=== PATIENT | male | born 1980 | race Caucasian/White ===

== ENCOUNTER 2018-10-25 20:44 | Emergency (ER) | payer BC ==
[~2018-10-25] VITALS: Ht 175.3 cm; Wt 68.0 kg
[~2018-10-25 20:44] MED LIST: AMOXICILLIN500 M1 PO; GABAPENTIN 100100 MG; NEURONTIN800 MG PO; NORCO 5-325 TA1 EACH PO; OXYCONTIN10 M1; PERCOCET; PREDNISONE50 MG PO; TUMS PO; ZANTAC 150MG T150 MG
[2018-10-25] MEDS ORDERED: KEFLEX500 M1 PO ×2 (21:13→21:26)
[2018-10-25 21:39] VITALS: BP 156/102
== END 2018-10-25 21:40 | disposition home or self-care (01) ==
LOC: M.ERS 20:44
DX: S51.811A Laceration without foreign body of right forearm, initial encounter (principal); Z88.8 Allergy status to other drugs, medicaments and biological substances; Z88.6 Allergy status to analgesic agent; W26.8XXA Contact with other sharp object(s), not elsewhere classified, initial encounter; Y93.89 Activity, other specified; Y92.89 Other specified places as the place of occurrence of the external cause; Y99.8 Other external cause status

== ENCOUNTER 2018-11-01 21:23 | Emergency (ER) | payer BC ==
[~2018-11-01 21:23] MED LIST changes: +KEFLEX500 M1 PO
== END 2018-11-01 22:58 ==
LOC: M.ERS 21:23
DX: Z02.89 Encounter for other administrative examinations (principal)

== ENCOUNTER 2019-07-09 20:49 | Emergency (ER) | payer OTHER ==
[~2019-07-09] VITALS: Ht 167.6 cm; Wt 63.5 kg
[2019-07-09] MEDS ORDERED: KEFLEX500 M1 PO (21:57)
[2019-07-09 22:28] VITALS: BP 142/70
== END 2019-07-09 22:29 | disposition home or self-care (01) ==
LOC: M.ERS 20:49
DX: S56.49 Other injury of extensor muscle, fascia and tendon of other and unspecified finger at forearm level (principal); Z88.6 Allergy status to analgesic agent; Z88.8 Allergy status to other drugs, medicaments and biological substances; W26.0XXA Contact with knife, initial encounter; Y93.89 Activity, other specified; Y92.89 Other specified places as the place of occurrence of the external cause; Y99.8 Other external cause status

== ENCOUNTER 2019-10-23 15:56 | Emergency (ER) | payer OTHER ==
[~2019-10-23] VITALS: Ht 182.9 cm; Wt 63.5 kg
[2019-10-23] MEDS ORDERED: LISINOPRIL2.5 MG PO (16:09)
[2019-10-23] MEDS ORDERED: NORCO 5-325 TA1 EAC1 PO (17:01)
[2019-10-23 17:29] VITALS: BP 142/98
== END 2019-10-23 17:29 | disposition home or self-care (01) ==
LOC: M.ERS 15:56
DX: S52.134A Nondisplaced fracture of neck of right radius, initial encounter for closed fracture (principal); M25.531 Pain in right wrist; I10 Essential (primary) hypertension; Z88.6 Allergy status to analgesic agent; Z88.8 Allergy status to other drugs, medicaments and biological substances; X50.1XXA Overexertion from prolonged static or awkward postures, initial encounter; Y93.89 Activity, other specified; Y92.89 Other specified places as the place of occurrence of the external cause; Y99.8 Other external cause status

== ENCOUNTER 2021-03-28 15:07 | Emergency (ER) | payer OTHER ==
[~2021-03-28] VITALS: Ht 182.9 cm; Wt 65.8 kg
[~2021-03-28 15:07] MED LIST changes: +LISINOPRIL2.5 MG PO; +NORCO 5-325 TA1 EAC1 PO
[2021-03-28] MEDS ORDERED: LIDODERM1 EACH TOP ×2 (16:47→16:48)
[2021-03-28] MEDS ORDERED: MEDROLDOSEPACK PO (16:48)
[2021-03-28] MEDS ORDERED: FLEXERIL PO (16:48)
[2021-03-28 17:00] VITALS: BP 122/72
== END 2021-03-28 17:01 | disposition home or self-care (01) ==
LOC: M.ERS 15:07
DX: G89.29 Other chronic pain (principal); M25.512 Pain in left shoulder; M62.830 Muscle spasm of back; I10 Essential (primary) hypertension; Z79.899 Other long term (current) drug therapy; Z88.6 Allergy status to analgesic agent; Z88.5 Allergy status to narcotic agent

== ENCOUNTER 2021-04-13 11:16 | Emergency (ER) | payer OTHER ==
[~2021-04-13] VITALS: Ht 175.3 cm; Wt 74.8 kg
[~2021-04-13 11:16] MED LIST changes: +FLEXERIL PO; +LIDODERM1 EACH TOP; +MEDROLDOSEPACK PO
[2021-04-13 11:59] LABS: HEMATOCRIT 41.7 % (42.0-52.0); HEMOGLOBIN 14.2 gm/dL (14.0-18.0); MCH 30.9 pg (26.0-34.0); MCHC 34.1 g/dL (28.0-37.0); MCV 90.6 fL (80.0-100.0); RBC 4.6 mil/uL (4.50-6.00); RDW-CV 14.1 % (10.5-14.5); WBC 5.5 thou/uL (4.0-11.0)
[2021-04-13 12:16] LABS: CALCIUM 8.3 mg/dL (8.5-10.1); CREATININE 1.3 mg/dL (0.6-1.3); POTASSIUM 5.4 mmol/L (3.5-5.1)
[2021-04-13 12:21] LABS: ALBUMIN 2.8 g/dL (3.4-5.0); TOTAL BILIRUBIN 0.6 mg/dL (<0.1-1.0); TOTAL PROTEIN 7.3 g/dL (6.4-8.2)
[2021-04-13] MEDS ORDERED: IBUPROFEN 800800 M1 PO (13:35)
[2021-04-13] MEDS ORDERED: PREDNISONE50 MG PO (13:35)
[2021-04-13] MEDS ORDERED: TESSALON PERLE100 MG PO (13:35)
[2021-04-13 13:40] VITALS: BP 97/43
--- NOTE | 2021-04-14 11:07 | EKG ---
[place] [address] ELECTROCARDIOGRAM REPORT Name: SONALI JJ [facility] [id number] Admission: 04/13/21 Attend Phys: Discharge: 04/13/21 Date of : 82 Date of Service: 04/13/21 1229 Report #: [id number] THIS REPORT FOR: //name// [facility] ED Test Date: 2021-04-13 Test Time: 12:29:17 Pat Name: SONALI JJ Department: Room: Gender: Commercial [employer] Service Technician: TJMyrna : 1980 Requested By: Alex Parkinson Order Number: [id number] MD: Nirmal Quispe Measurements Intervals [place] Rate: 95 P: 45 NH: 105 QRS: 25 QRSD: 83 T: 6 QT: 330 QTc: 415 Interpretive Statements Sinus rhythm Short NH interval Probable left atrial enlargement Compared to ECG 08/02/2015 12:09:54 Short NH interval now present Sinus tachycardia no longer present ST (T wave) deviation no longer present Electronically Signed On 04-14-2021 11:07:31 [employer] by Nirmal Quispe [email or web address] <ELECTRONICALLY SIGNED> By: Harper Quispe MD, FAC 04/14/21 1107 122 1229 Harper Quispe MD, FAC /EPI
== END 2021-04-13 13:41 | disposition home or self-care (01) ==
LOC: M.ERS 11:16
PROVIDERS: Emergency Medicine Emergency Medical Services
DX: U07.1 COVID-19 (principal); I10 Essential (primary) hypertension; Z98.890 Other specified postprocedural states; Z79.899 Other long term (current) drug therapy; Z88.8 Allergy status to other drugs, medicaments and biological substances